=== PATIENT | female | born 1935 | race Caucasian/White ===

== ENCOUNTER → 2016-07-05 | Outpatient (CLI) | payer OTHER ==
[2016-07-05 09:43] LABS: BASOPHILS # (AUTO) 0.01 10*3/UL; BASOPHILS % (AUTO) 0.3 % (0-1); HEMATOCRIT 39.1 % (37.0-47.0); HEMOGLOBIN 12.3 g/dL (12.0-16.0); IMM GRAN % (AUTO) 0.3 % (0-5); IMM GRAN# (AUTO) 0.01 10*3/UL; LYMPHOCYTES # (AUTO) 0.53 10*3/uL; LYMPHOCYTES % (AUTO) 14.1 % (10-50); MEAN CORPUSCULAR HEMOGLOBIN 26.3 PG (27-31); MEAN CORPUSCULAR HGB CONC 31.5 g/dL (33-37); MEAN PLATELET VOLUME 11.3 FL (7.4-12.2); MONOCYTES # (AUTO) 0.19 10*3/UL (0.3-0.8); NEUTROPHILS # (AUTO) 2.88 10*3/UL; NEUTROPHILS % (AUTO) 76.3 % (50-80); RDW COEFFICIENT OF VARIATION 16.2 % (11.5-14.5); RED BLOOD COUNT 4.68 10^6/uL (4.20-5.40); WHITE BLOOD COUNT 3.77 10^3/uL (4.8-10.8)
[2016-07-05 09:47] LABS: PLATELET MORPHOLOGY COMMENT NORMAL MORPHOLOGY (NORM)
[2016-07-05 10:00] LABS: BILIRUBIN,TOTAL 1.1 mg/dL (0.3-1.2); BUN/CREATININE RATIO 18.75 (6-20); CALCIUM 9.2 mg/dL (8.7-10.7); CREATININE 0.8 mg/dL (0.50-1.20); HEMOGLOBIN A1C 7.21 % (4.2-6.0); LDL CHOLESTEROL,CALCULATED 62.2 mg/dL; MEAN BLOOD GLUCOSE (CALC) 154.093 mg/dL; POTASSIUM 4.2 meq/L (3.8-5.2); TOTAL PROTEIN 7.1 g/dL (6.1-8.0)
[2016-07-05 10:07] LABS: CREATININE, URINE 108.6 MG/DL (15-500)
== END ==
LOC: LAB 09:05
PROVIDERS: ATTEND Internal Medicine
DX: E11.9 Type 2 diabetes mellitus without complications (principal); E78.5 Hyperlipidemia, unspecified; D69.59 Other secondary thrombocytopenia; G93.3 Postviral and related fatigue syndromes
CPT/HCPCS: 36415; 80053; 80061; 82043; 83036; 84443; 85025

== ENCOUNTER → 2016-11-08 | Outpatient (CLI) | payer OTHER | LOC: MMPC 11:11 | PROVIDERS: ATTEND Internal Medicine | DX: R53.82 Chronic fatigue, unspecified (principal); I85.00 Esophageal varices without bleeding; L57.0 Actinic keratosis; K75.81 Nonalcoholic steatohepatitis (NASH); Z85.038 Personal history of other malignant neoplasm of large intestine | CPT/HCPCS: 17000 ×2; 17003 ×2; 99214; G0463 ==